=== PATIENT | female | born 1960 | race Caucasian/White ===

== ENCOUNTER → 2016-04-30 | Outpatient (CLI) | payer MEDICARE | LOC: RAD 11:19 | PROVIDERS: ATTEND Specialist | DX: M54.12 Radiculopathy, cervical region (principal) | CPT/HCPCS: 72040 ==

== ENCOUNTER 2016-06-28 09:51 | Emergency (ER) | payer MEDICARE ==
[2016-06-28] MEDS ORDERED: NORMAL SALINE 1000 ML 1,000 ML IV ONE (10:18)
--- NOTE | 2016-06-28 10:24 | ER Document Report ---
ED General - General Chief Complaint: Knee Pain Stated Complaint: LEG PAIN Mode of Arrival: Ambulatory Information source: Patient Notes: 56-year-old female presents with 2 separate complaints. Patient notes that she' s been having low back pain rating down her buttocks to the left knee sharp electric for the past few months, as well as passing out spells that been going on for years. Patient notes she has been seen for her buttocks pain and was told it was bursitis, and has never been diagnosed. Patient is noted to be on metoprolol for anxiety TRAVEL OUTSIDE OF THE [place] IN LAST 30 DAYS: No - HPI Onset: Other Onset/Duration: Persistent Quality of pain: Sharp Severity: Mild Pain Level: 2 Associated symptoms: Body/muscle aches, Other Exacerbated by: Standing, Movement Relieved by: Denies Similar symptoms previously: Yes Recently seen / treated by doctor: Yes - Related Data Allergies/Adverse Reactions: latex Allergy (Verified 06/28/16 10:35) Past Medical History - Social History Smoking Status: Never Smoker Cigarette use (# per day): No Chew tobacco use (# tins/day): No Smoking Education Provided: No Family History: Reviewed & Not Pertinent Patient has suicidal ideation: No Patient has homicidal ideation: No Renal/ Medical History: Denies: Hx Peritoneal Dialysis Review of Systems - Review of Systems Notes: REVIEW OF SYSTEMS: CONSTITUTIONAL : Denies fever, chills, or sweats. Denies recent illness. EENT: Denies eye, ear, throat, or mouth pain or symptoms. Denies nasal or sinus congestion or discharge. Denies throat, tongue, or mouth swelling or difficulty swallowing. CARDIOVASCULAR: Denies chest pain. Denies palpitations or racing or irregular heart beat. Denies ankle edema. RESPIRATORY: Denies cough, cold, or chest congestion. Denies shortness of breath, difficulty breathing, or wheezing. GASTROINTESTINAL: Denies abdominal pain or distention. Denies nausea, vomiting , or diarrhea. Denies blood in vomitus, stools, or per rectum. Denies black, tarry stools. Denies constipation. GENITOURINARY: Denies difficulty urinating, painful urination, burning, frequency, blood in urine, or discharge. MUSCULOSKELETAL: Denies back or neck pain or stiffness. Denies joint pain or swelling. Admits to pain down the buttocks SKIN: Denies rash, lesions or sores. HEMATOLOGIC : Denies easy bruising or bleeding. LYMPHATIC: Denies swollen, enlarged glands. NEUROLOGICAL: Admits to dizziness syncope PSYCHIATRIC: Denies anxiety or stress. Denies depression, suicidal ideation, or homicidal ideation. ALL OTHER SYSTEMS REVIEWED AND NEGATIVE. Dictation was performed using [employer] voice recognition software PHYSICAL EXAMINATION: GENERAL: Well-appearing, well-nourished and in no acute distress. HEAD: Atraumatic, normocephalic. EYES: Pupils equal round and reactive to light, extraocular movements intact, sclera anicteric, conjunctiva are normal. ENT: Nares patent, oropharynx clear without exudates. Moist mucous membranes. NECK: Normal range of motion, supple without lymphadenopathy LUNGS: Breath sounds clear to auscultation bilaterally and equal. No wheezes rales or rhonchi. HEART: Regular rate and rhythm without murmurs ABDOMEN: Soft, nontender, nondistended abdomen. No guarding, no rebound. No masses appreciated. Musculoskeletal: Normal range of motion, no pitting or edema. No cyanosis. NEUROLOGICAL: Cranial nerves grossly intact. Normal speech, normal gait. Normal sensory, motor exams pain reproducible in the sciatic nerve on palpation the buttocks PSYCH: Normal mood, normal affect. SKIN: Warm, Dry, normal turgor, no rashes or lesions noted. Physical Exam - Vital signs Vitals: Temp Pulse Resp BP Pulse Ox 97.9 F 83 14 80/50 L 97 06/28/16 09:53 06/28/16 09:53 06/28/16 09:53 06/28/16 09:53 06/28/16 09:53 Course - Re-evaluation Re-evalutation: 06/28/16 10:25 This is a 48-year-old female who presents with syncope that occurs multiple times a day. Patient was emergently brought back due to her hypotension however when I walked into the room patient notes that her current blood pressure is actually high for her and she normally has bp 60/40s. Pt notes that noone has ever told her her bp is low. Pt is on metoprolol for anxiety. Pt has obvious orthostatic hypotension and syncope secondary to this. I beleive the cause is her bp medication. Her buttock pain is consistent with sciatica. Initially i was concerned about a dissection but given how chronic this is and her presentation this is actually a very benign presentation 06/28/16 11:27 Patient's blood pressure has improved with 1 L of normal saline, I have requested that she stop her metoprolol and follow up with her primary care physician. She will be treated with steroids for her sciatic pain. Patient will be given orthopedic follow-up as well. Patient given very strict return precautions After performing a Medical Screening Examination, I estimate there is LOW risk for INTRACRANIAL HEMORRHAGE, ISCHEMIC CVA, MALIGNANT DYSRHYTHMIA, ACUTE CORONARY SYNDROME, MENINGITIS, PULMONARY EMBOLISM, or SEPSIS thus I consider the discharge disposition reasonable. I have reevaluated this patient multiple times and no significant life threatening changes are noted. The patient and I have discussed the diagnosis and risks, and we agree with discharging home with close follow-up with the understanding that symptoms and presentations can change. We also discussed returning to the Emergency Department immediately if new or worsening symptoms occur. We have discussed the symptoms which are most concerning (e.g., changing or worsening pain, weakness, vomiting, fever) that necessitate immediate return. - Vital Signs Vital signs: Temp Pulse Resp BP Pulse Ox 97.9 F 83 14 80/50 L 97 06/28/16 09:53 06/28/16 09:53 06/28/16 09:53 06/28/16 09:53 06/28/16 09:53 - Laboratory Result Diagrams: 06/28/16 10:20 06/28/16 10:20 Laboratory results interpreted by me: 06/28/16 06/28/16 10:20 10:20 RBC 3.57 L Hgb 10.2 L Hct 30.9 L RDW 17.2 H Eosinophils % 6.7 H BUN 22 H Creatine Kinase 25 L Total Protein 5.8 L Discharge - Discharge Clinical Impression: Sciatic leg pain, Hypotension due to drugs Condition: Stable Disposition: HOME, SELF-CARE Instructions: Hypotension ([facility]), Orthostatic Hypotension ([facility]), Sciatica ([facility]) Referrals: KEIRA CASTELLON MD [ACTIVE STAFF] - Follow up tomorrow
[2016-06-28 10:35] LABS: ABSOLUTE EOSINOPHILS # (AUTO) 0.3 10^3/uL (0.0-0.6); ABSOLUTE LYMPHOCYTES (AUTO) 1.8 10^3/uL (0.5-4.7); ABSOLUTE MONOCYTES (AUTO) 0.5 10^3/uL (0.1-1.4); ABSOLUTE NEUT (AUTO) 2.4 10^3/uL (1.7-8.2); BASOPHILS % (AUTO) 0.6 % (0-2); EOSINOPHILS % (AUTO) 6.7 % (0-6); HEMATOCRIT 30.9 % (36.0-47.0); HEMOGLOBIN 10.2 g/dL (12.0-15.5); HGB HCT DIFFERENCE -0.3; LYMPHOCYTES % (AUTO) 35.9 % (13-45); MEAN CORPUSCULAR HEMOGLOBIN 28.6 pg (27.0-33.4); MEAN CORPUSCULAR HGB CONC 33.1 g/dL (32.0-36.0); MEAN CORPUSCULAR VOLUME 87 fl (80-97); MONOCYTES % (AUTO) 10.3 % (3-13); RED BLOOD COUNT 3.57 10^6/uL (3.72-5.28); RED CELL DISTRIBUTION WIDTH 17.2 % (11.5-14.0); SEGMENTED NEUTROPHILS % (AUTO) 46.5 % (42-78); WHITE BLOOD COUNT 5.1 10^3/uL (4.0-10.5)
[2016-06-28 10:56] LABS: ALANINE AMINOTRANSFERASE 17 U/L (9-52); ALBUMIN 3.5 g/dL (3.5-5.0); ALKALINE PHOSPHATASE 97 U/L (38-126); ANION GAP 11 (5-19); ASPARTATE AMINO TRANSFERASE 16 U/L (14-36); BILIRUBIN,DIRECT 0.2 mg/dL (0.0-0.4); BILIRUBIN,TOTAL 0.3 mg/dL (0.2-1.3); BLOOD UREA NITROGEN 22 mg/dL (7-20); CALCIUM 8.8 mg/dL (8.4-10.2); CARBON DIOXIDE 26 mmol/L (22-30); CHLORIDE 104 mmol/L (98-107); CREATINE KINASE 25 U/L (30-135); CREATININE RESULT 0.69 mg/dL (0.52-1.25); GLUCOSE 85 mg/dL (75-110); POTASSIUM 4.7 mmol/L (3.6-5.0); TOTAL PROTEIN 5.8 g/dL (6.3-8.2)
[2016-06-28 11:08] LABS: CREATINE KINASE MB < 0.22 ng/mL (<4.55); TROPONIN I < 0.012 ng/mL
[2016-06-28 11:34] VITALS: BP 101/66
--- NOTE | 2016-06-28 18:06 | EKG REPORT ---
SEVERITY:- BORDERLINE ECG - SINUS RHYTHM NONSPECIFIC ST-T CHANGES DIFFUSE. : Confirmed by: Donte Peters MD 28-Jun-2016 18:04:55
== END 2016-06-28 11:42 | disposition home or self-care (01) ==
LOC: ER 09:51
DX: M54.32 Sciatica, left side (principal); I95.2 Hypotension due to drugs; M25.562 Pain in left knee; M54.5 Low back pain; Z79.899 Other long term (current) drug therapy; F41.9 Anxiety disorder, unspecified
CPT/HCPCS: 93005; 99283; 36415; 82553; 82550; 85025; 80053; 84484; 93010; J7030

== ENCOUNTER 2016-07-08 13:31 | Emergency (ER) | payer MEDICARE ==
[2016-07-08] MEDS ORDERED: OXYCODONE-ACETAMINOPHEN 5-325 MG TABLET PO ONE (14:39)
[2016-07-08 15:55] LABS: APPEARANCE,URINE SLIGHTLY-CLOUDY; BILIRUBIN,URINE NEGATIVE (NEGATIVE); GLUCOSE, URINE NEGATIVE (NEGATIVE); KETONES,URINE NEGATIVE (NEGATIVE); LEUKOCYTE ESTERASE,URINE SMALL (NEGATIVE); NITRITE,URINE POSITIVE (NEGATIVE); PROTEIN,URINE NEGATIVE (NEGATIVE); URINE SPECIFIC GRAVITY 1.014; UROBILINOGEN,URINE NEGATIVE mg/dL (<2.0)
--- NOTE | 2016-07-08 18:52 | ER Document Report ---
HPI - HPI Patient complains to provider of: severe low back pain Onset: Other Onset/Duration: Constant, Worse Quality of pain: Sharp, Stabbing, Throbbing Severity: Moderate Pain Level: 4 Context: Patient states she has been having low back pain radiating down the left leg for the last week and a half. Has been seen here previously in the emergency room, and medications given did not help. Pain is gotten much worse. Patient denies loss of control of bowels or bladder. Associated Symptoms: None Exacerbated by: Sitting, Movement, Walking Relieved by: Denies Similar symptoms previously: Yes Recently seen / treated by doctor: Yes - ROS ROS below otherwise negative: Yes Systems Reviewed and Negative: Yes All other systems reviewed and negative - CONSTITUTIONAL Constitutional: DENIES: Fever - EENT EENT: DENIES: Congestion - NEURO Neurology: DENIES: Headache - CARDIOVASCULAR Cardiovascular: DENIES: Chest pain - RESPIRATORY Respiratory: DENIES: Trouble Breathing - GASTROINTESTINAL Gastrointestinal: DENIES: Abdominal Pain - URINARY Urinary: DENIES: Dysuria - MUSCULOSKELETAL Musculoskeletal: REPORTS: Back Pain - DERM Skin Color: Normal Skin Problems: None Past Medical History - General Information source: Patient - Social History Smoking Status: Never Smoker Frequency of alcohol use: None Drug Abuse: None Lives with: Spouse/Significant other Family History: Reviewed & Not Pertinent Patient has suicidal ideation: No Patient has homicidal ideation: No Renal/ Medical History: Denies: Hx Peritoneal Dialysis Psychiatric Medical History: Reports: Hx Bipolar Disorder Past Surgical History: Reports: Hx Hysterectomy, Hx Orthopedic Surgery - neck and back / x 6 - Immunizations Hx Diphtheria, Pertussis, Tetanus Vaccination: Yes Vertical Provider Document - CONSTITUTIONAL Agree With Documented VS: Yes Exam Limitations: No Limitations General Appearance: WD/WN, Mild Distress Notes: Patient is crying, stating that no one wants to help her. - INFECTION CONTROL TRAVEL OUTSIDE OF THE [place] IN LAST 30 DAYS: No - HEENT HEENT: Atraumatic, Normocephalic - RESPIRATORY Respiratory: Breath Sounds Normal, No Respiratory Distress O2 Sat by Pulse Oximetry: 97 - CARDIOVASCULAR Cardiovascular: Regular Rate, Regular Rhythm - GI/ABDOMEN Gastrointestinal: Abdomen Soft, Abdomen Non-Tender, Normal Bowel Sounds - BACK Notes: Lumbar spine is tender in left lumbar paraspinal muscles. Tender over left sciatic nerve over the buttocks, pain with movement of left leg. Neurovascular and sensation intact. No saddle anesthesia - MUSCULOSKELETAL/EXTREMETIES Musculoskeletal/Extremeties: MAEW - NEURO Level of Consciousness: Awake, Alert, Agitated - DERM Integumentary: Warm, Dry Course - Re-evaluation Re-evalutation: 07/08/16 18:51 Results of urinalysis and MRI discussed with patient. Patient aware she has a urinary tract infection, and is to follow-up with orthopedic for further evaluation of bulging disks in back. - Vital Signs Vital signs: Temp Pulse Resp BP Pulse Ox 98.0 F 91 16 119/77 97 07/08/16 18:14 07/08/16 18:14 07/08/16 18:14 07/08/16 18:14 07/08/16 18:14 - Laboratory Laboratory results interpreted by me: 07/08/16 15:43 Urine Nitrite POSITIVE H Ur Leukocyte Esterase SMALL H Discharge - Discharge Clinical Impression: Bulging lumbar disc, Bacterial urinary tract infection Low back pain Qualifiers: Chronicity: acute Back pain laterality: left Sciatica presence: with sciatica Sciatica laterality: sciatica of left side Qualified Code(s): M54.42 - Lumbago with sciatica, left side Condition: Good Disposition: HOME, SELF-CARE Instructions: Urinary Tract Infection ([facility]), Nitrofurantoin ([facility]) Additional Instructions: Antibiotics as prescribed Push fluids [id number] ibuprofen 3 times a day as needed for pain Other meds as prescribed Follow-up with orthopedic for further evaluation of bulging disks Return as needed Prescriptions: Nitrofurantoin Monohyd/M-Cryst [Macrobid 100 mg Capsule] 100 mg PO BID #14 capsule Oxycodone HCl/Acetaminophen [Percocet 5-325 mg Tablet] 1 tab PO ASDIR PRN #15 tab PRN Reason: Referrals: JAMEL KOO MD [Primary Care Provider] - Follow up as needed JANIYA VEGA MD [ACTIVE STAFF] - Follow up as needed KEIRA MULLER MD [COMMUNITY BASED STAFF] - Follow up as needed EUSEBIO HILL DO [ACTIVE STAFF] - Follow up as needed NENA AMANDA DO [NO LOCAL MD] - Follow up as needed
[2016-07-08 19:25] VITALS: BP 126/70
== END 2016-07-08 19:20 | disposition home or self-care (01) ==
LOC: ER 13:31
DX: M51.16 Intervertebral disc disorders with radiculopathy, lumbar region (principal); N39.0 Urinary tract infection, site not specified; B96.89 Other specified bacterial agents as the cause of diseases classified elsewhere
CPT/HCPCS: 99284; 81001; 72148; A9270

== ENCOUNTER → 2016-08-30 | Outpatient (CLI) | payer MEDICARE ==
--- NOTE | 2016-08-31 08:59 | RADIOLOGY REPORT (SQ) ---
EXAM DESCRIPTION: MRI LT LOWER JOINT WITHOUT COMPLETED DATE/TIME: 08/30/2016 11:08 am REASON FOR STUDY: PAIN IN LEFT KNEE M25.562 PAIN IN LEFT KNEE COMPARISON: None. TECHNIQUE: Leftknee images acquired and stored on PACS. Multiplanar images include fat sensitive se quences as T1, water sensitive sequences as FST2 or STIR, cartilage sensitive sequences as FSPD, and gradient echo sequences. LIMITATIONS: None. FINDINGS: JOINT AND BURSAE: No effusion. BONE CORTEX AND MARROW: No alteration of signal to suggest marrow replacement. No worrisome bone lesi ons. No occult fracture. ACL: Intact. No degeneration or ganglion cyst. PCL: Intact. MCL: Intact. No periligamentous edema or fluid. LCL: Intact. No periligamentous edema or fluid. MEDIAL MENISCUS: Grade 2 signal. No intra-articular tear. LATERAL MENISCUS: No tears. No abnormal signal. MEDIAL COMPARTMENT: Cartilage preserved. No bone bruises or reactive marrow edema. No osteophytes. LATERAL COMPARTMENT: Cartilage preserved. No bone bruises or reactive marrow edema. No osteophytes. PATELLA: No chondromalacia. No subchondral cysts. Medial and lateral retinacula intact. EXTENSOR MECHANISM: Intact. Quadriceps and patella tendons normal. SOFT TISSUES: Adjacent muscles and subcutaneous tissues normal. Normal flow void in popliteal artery and vein. OTHER: No other significant finding. IMPRESSION: Grade 2 signal in the medial meniscus without intra-articular tear. Otherwise normal st udy. TECHNICAL DOCUMENTATION: JOB ID: [id number] [employer]- All Rights Reserved
== END ==
LOC: RAD 10:24
PROVIDERS: ATTEND Physician Assistant
DX: M25.562 Pain in left knee (principal)

== ENCOUNTER 2017-03-06 11:52 | Emergency (ER) | payer MEDICARE ==
--- NOTE | 2017-03-06 12:01 | ER Document Report ---
HPI - HPI Patient complains to provider of: cough Onset: Other - few days Onset/Duration: Gradual Pain Level: 3 Context: 56 yo female with cough and wheeze for several days. Hx athma.No fever. No chest pain or SOB. Associated Symptoms: None Exacerbated by: Denies Relieved by: Denies Similar symptoms previously: Yes Recently seen / treated by doctor: No - ROS ROS below otherwise negative: Yes Systems Reviewed and Negative: Yes All other systems reviewed and negative Past Medical History - General Information source: Patient - Social History Smoking Status: Unknown if Ever Smoked Frequency of alcohol use: None Drug Abuse: None Lives with: Family Family History: Reviewed & Not Pertinent Pulmonary Medical History: Reports: Hx Bronchitis Renal/ Medical History: Denies: Hx Peritoneal Dialysis Psychiatric Medical History: Reports: Hx Bipolar Disorder Past Surgical History: Reports: Hx Hysterectomy, Hx Orthopedic Surgery - neck and back / x 6 - Immunizations Hx Diphtheria, Pertussis, Tetanus Vaccination: Yes Vertical Provider Document - CONSTITUTIONAL Agree With Documented VS: Yes Exam Limitations: No Limitations General Appearance: No Apparent Distress - INFECTION CONTROL TRAVEL OUTSIDE OF THE [place] IN LAST 30 DAYS: No - HEENT HEENT: Normocephalic, Pharyngeal Erythema - mild - NECK Neck: Supple. negative: Lymphadenopathy-Left, Lymphadenopathy-Right - RESPIRATORY Respiratory: No Respiratory Distress O2 Sat by Pulse Oximetry: 97 Notes: scattered coarse wheeze - CARDIOVASCULAR Cardiovascular: Regular Rate, Regular Rhythm - GI/ABDOMEN Gastrointestinal: Abdomen Soft, Abdomen Non-Tender, No Organomegaly - MUSCULOSKELETAL/EXTREMETIES Musculoskeletal/Extremeties: MAEW, FROM - NEURO Level of Consciousness: Awake, Alert, Appropriate - DERM Integumentary: Warm, Dry, No Rash Course - Re-evaluation Re-evalutation: 03/06/17 chest xray negative, feels better after nebulizer, no wheeze. - Vital Signs Vital signs: Temp Pulse Resp BP Pulse Ox 98.1 F 110 H 20 91/56 L 97 03/06/17 11:58 03/06/17 11:58 03/06/17 11:58 03/06/17 11:58 03/06/17 11:58 Discharge - Discharge Clinical Impression: Bronchitis, hx asthma Condition: Good Disposition: HOME, SELF-CARE Instructions: Bronchitis ([facility]), Inhaled Bronchodilators ([facility]), Steroid Medication Additional Instructions: Albuterol nebulizer every 3 hours as needed today for wheezing and cough Steroids for 4 more days Return to the emergency room for any chest pain or shortness of breath See her primary care doctor at [facility] for follow-up. Prescriptions: Albuterol Sulfate [Ventolin 0.083% Neb 2.5 mg/3 mL Ampul] 2.5 mg NEB Q3HP PRN # 25 vial PRN Reason: Albuterol Sulfate [Proair HFA Inhalation Aerosol 8.5 gm MDI] 2 puff IH Q3HP PRN #1 hfa.aer.[email or web address] PRN Reason: Nebulizer [Nebulizer Machine] 1 each MC ASDIR PRN #1 kit PRN Reason: Referrals: TAMERA KEE FNP [Primary Care Provider] - Follow up as needed
[2017-03-06] MEDS ORDERED: IPRATROPIUM/ALBUTEROL 0.5-2.5 MG/3 ML AMPUL NEB ONE (12:07)
--- NOTE | 2017-03-06 12:21 | RADIOLOGY REPORT (SQ) ---
EXAM DESCRIPTION: CHEST PA/LAT COMPLETED DATE/TIME: 03/06/2017 12:14 pm REASON FOR STUDY: cough COMPARISON: None. EXAM PARAMETERS: NUMBER OF VIEWS: two views TECHNIQUE: Digital Frontal and Lateral radiographic views of the chest acquired. RADIATION DOSE: NA LIMITATIONS: none FINDINGS: LUNGS AND PLEURA: No opacities, masses or pneumothorax. No pleural effusion. MEDIASTINUM AND HILAR STRUCTURES: No masses or contour abnormalities. HEART AND VASCULAR STRUCTURES: Heart normal size. No evidence for failure. BONES: Lower cervical fusion plate HARDWARE: None in the chest. OTHER: No other significant finding. IMPRESSION: NO SIGNIFICANT RADIOGRAPHIC FINDING IN THE CHEST. TECHNICAL DOCUMENTATION: JOB ID: [id number] [employer]- All Rights Reserved
[2017-03-06] MEDS ORDERED: PREDNISONE 20 MG TABLET PO ONE (13:07)
[2017-03-06 13:24] VITALS: BP 105/64
== END 2017-03-06 13:25 | disposition home or self-care (01) ==
LOC: ER 11:52
DX: J40 Bronchitis, not specified as acute or chronic (principal); R05 Cough
CPT/HCPCS: 94640; 99283; 71020; A9270 ×2; J7512; J7620

== ENCOUNTER 2017-09-02 03:54 | Emergency (ER) | payer MEDICARE ==
[2017-09-02] MEDS ORDERED: KETOROLAC TROMETHAMINE INJ/PF 30 MG/1 ML SDV IM ONE (04:43)
--- NOTE | 2017-09-02 05:04 | ER Document Report ---
HPI - HPI Pain Level: 4 Notes: Patient is a 57-year-old female with history of chronic pain, bipolar, OCD who presents to the ED complaining of right posterior lateral inferior rib pain status post injury 2 days ago. Patient states that she was on her bed when she rolled off and hit her back off of a wooden object. Patient states that she has had pain in that area since then. Patient states that she did have it evaluated by her pain management provider but did not have any x-rays performed. Patient states that she has pain with movement and pressure to that area. Pain will occasionally feel like a spasm. She is still eating and drinking without difficulties. She is urinating normally without any obvious blood in his having normal bowel movements. Patient states the pain does not radiate. No other concerns or complaints at this time. Denies any headache, fever, head injury, neck pain, changes in vision/speech/mentation/hearing, URI, sore throat, chest pain, palpitations, syncope, cough, shortness of breath, wheeze, dyspnea, abdominal pain, nausea/vomiting/diarrhea, urinary retention, dysuria, hematuria, loss of control of bowel or bladder, numbness/tingling, saddle anesthesia, muscle paralysis/weakness, or rash. - ROS Systems Reviewed and Negative: Yes All other systems reviewed and negative Past Medical History - Social History Smoking Status: Never Smoker Family History: Reviewed & Not Pertinent Pulmonary Medical History: Reports: Hx Asthma, Hx Bronchitis Neurological Medical History: Reports: Hx Migraine Renal/ Medical History: Denies: Hx Peritoneal Dialysis Psychiatric Medical History: Reports: Hx Bipolar Disorder Past Surgical History: Reports: Hx Hysterectomy, Hx Orthopedic Surgery - neck and back / x 6 - Immunizations Hx Diphtheria, Pertussis, Tetanus Vaccination: Yes Vertical Provider Document - CONSTITUTIONAL Agree With Documented VS: Yes Notes: PHYSICAL EXAMINATION: GENERAL: Well-appearing, well-nourished and in no acute distress. HEAD: Atraumatic, normocephalic. NECK: Normal range of motion, supple without lymphadenopathy. Non-tender. LUNGS: Breath sounds clear to auscultation bilaterally and equal. No wheezes rales or rhonchi. HEART: Regular rate and rhythm without murmurs, rubs, gallops. ABDOMEN: Soft, nontender, nondistended abdomen. No guarding, no rebound. No masses appreciated. Normal bowel sounds present. No CVA tenderness bilaterally. No ecchymosis. Back: + tenderness to the rt inferior lateral ribs. No ecchymosis, step-offs, or deformity noted. No midline tenderness. No SI jt tenderness or foot drop. Musculoskeletal: LE's b/l: FROM to passive/active. Strength 5+/5. N/V intact. Extremities: No cyanosis, clubbing, or edema b/l. Peripheral pulses 2+. Capillary refill less than 3 seconds. NEUROLOGICAL: Cranial nerves grossly intact. Normal speech, normal gait. Normal sensory, motor exams PSYCH: Normal mood, normal affect. SKIN: Warm, Dry, normal turgor, no rashes or lesions noted. - INFECTION CONTROL TRAVEL OUTSIDE OF THE [place] IN LAST 30 DAYS: No Course - Re-evaluation Re-evalutation: 09/02/17 05:32 Patient is an afebrile, well-hydrated, 57-year-old female who presents to the ED with Rt posterolateral inferior rib fractures to #8-9. Vitals are acceptable. PE is otherwise unremarkable. Patient has no significant tachycardia, tachypnea, or hypoxia. She is nontoxic-appearing. She is tolerating p.o. without difficulties. See XR results. FAST exam performed by Dr. Lees negative. Patient was given Tylenol. Toradol given IM today. No other labs or imaging warranted at this time based on H&P. Low suspicion for any ACS, PE, pneumothorax, pericarditis, dissection, respiratory compromise , severe dehydration, sepsis, meningitis, fracture, internal hemorrhage, or other systemic emergent condition at this time. Patient is aware that this condition can change from initial presentation and she needs to monitor symptoms closely and seek medical attention for any acute changes. Rx for lidoderm patches. Recommend conservative measures for symptoms. Recheck with your PCM in 2-3 days. Return to the ED with any worsening/concerning symptoms otherwise as reviewed in discharge. Patient is in agreement. - Vital Signs Vital signs: Temp Pulse Resp BP Pulse Ox 97.4 F 108 H 16 90/61 L 97 09/02/17 04:01 09/02/17 04:01 09/02/17 04:01 09/02/17 04:01 09/02/17 04:01 Procedures - Ultrasound/Bedside Ultrasound/Bedside Time completed: 04:50 Notes: 09/02/17 05:03 FAST exam with Limited Cardiac Indication: blunt/penetrating trauma to the chest/abdomen. Study: multiple images were obtained of the pericardial space, and the heart. No Pericardial fluid was seen. Multiple images were also obtained of the liver , spleen, bilateral kidneys, bladder, and associated and surrounding peritoneal spaces. No intraperitoneal free fluid was visualized in any potential space. Impression: Negative/Positive limited cardiac study for pericardial effusion. Negative/positive limited abdominal study for free intraperitoneal fluid. In this setting of trauma, this study was performed, only to evaluate for potential bleeding from trauma. This is not comprehensive exam intended to diagnose all pathology. This study cannot exclude small amounts intraperitoneal bleeding, solid organ injury, retroperitoneal injury, or bowel perforation. Recommend follow up studies as appropriate based on the clinical situation and the time of presentation post injury. The study was personally performed and interpreted by Dr. Lees. Images are stored electronically. (Limited abdomen and limited echocardiography) Discharge - Discharge Clinical Impression: Rib fractures Qualifiers: Encounter type: initial encounter Rib fracture type: multiple ribs Fracture type: closed Laterality: right Qualified Code(s): S22.41XA - Multiple fractures of ribs, right side, initial encounter for closed fracture Condition: Stable Disposition: HOME, SELF-CARE Instructions: Rib Injuries and Fractures ([facility]) Additional Instructions: Rest, Ice, Compression Tylenol/ibuprofen as needed Light stretches daily Strength exercises as able Moist heat and massage may help F/u with your PCP in 2-3 days for a recheck Consider consult(s) with Orthopedics/physical therapy for ongoing/worsening symptoms Return to the ED with any worsening symptoms and/or development of fever, headache, chest pain, palpitations, syncope, shortness of breath, trouble breathing, abdominal pain, n/v/d, muscle weakness/paralysis, numbness/tingling, swelling, redness, or other worsening symptoms that are concerning to you. Prescriptions: Lidocaine [Lidoderm] 1 each TP DAILY #30 adh..patch Referrals: DEREK PUGH PA-C [Primary Care Provider] - 09/04/17 [facility] [Provider Group] - Follow up as needed
--- NOTE | 2017-09-02 05:31 | RADIOLOGY REPORT (SQ) ---
EXAM DESCRIPTION: XR RIBS UNILATERAL WITH CHEST COMPLETED DATE/TME: 09/02/2017 04:43 CLINICAL HISTORY: 57 years, Female, rt lateral inferior rib pain s/p injury COMPARISON: None. NUMBER OF VIEWS: 4 LIMITATIONS: None. FINDINGS: Right lateral ninth rib fracture with 0.2 cm lateral displacement. Nondisplaced fracture/defect of the posterior lateral right eighth rib. No pneumothorax. Normal lung volume. Clear parenchyma. Normal cardiac silhouette. Lower cervical hardware fusion. IMPRESSION: Right ninth rib fracture. Possible right eighth rib fracture. No pneumothorax.
[2017-09-02 05:57] VITALS: BP 116/70
== END 2017-09-02 05:57 | disposition home or self-care (01) ==
LOC: ER 03:54
DX: S22.41XA Multiple fractures of ribs, right side, initial encounter for closed fracture (principal); W06.XXXA Fall from bed, initial encounter; J45.909 Unspecified asthma, uncomplicated
CPT/HCPCS: 99284; 96372; 71101; J1885